=== PATIENT | male | born 1960 | race Caucasian/White ===

== ENCOUNTER 2020-01-11 10:26 | Observation (INO) | payer SELFPAY ==
[2020-01-11] VITALS (10 sets, daily range): BP systolic 143–175; BP diastolic 80–110; PULSE 68–87; RESP 12–26; TEMP 36.5–36.9; O2SAT 94–99; BMI 25.4
--- NOTE | 2020-01-11 11:58 | ECG_ITS ---
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 Measurements Intervals [place] Rate: 80 P: 54 RI: 185 QRS: 47 QRSD: 102 T: -46 QT: 363 QTc: 421 Interpretive Statements SINUS RHYTHM POSSIBLE LEFT ATRIAL ENLARGEMENT [-0.1mV P WAVE IN V1/V2] MODERATE T-WAVE ABNORMALITY, CONSIDER ANTEROLATERAL ISCHEMIA [-0.1+ mV T WAVE IN V3-V6] No previous ECG available for comparison Electronically Signed On 01-11-2020 22:03:28 CDT by Nanette Vega M.D. [id number]
--- NOTE | 2020-01-11 11:58 | ED_ITS ---
HPI - Abdominal Pain General: Chief Complaint: Chest Pain Stated Complaint: NAUSEA Time Seen by Provider: 01/11/20 11:51 Source: patient Mode of arrival: ambulatory Limitations: no limitations History of Present Illness: HPI narrative: symptoms started last night and has continued to this morning. States he threw up all night . Several diarrheal episodes. MD elicited complaint: abdominal pain Pertinent past history: none Onset (ago): hour(s) (18) Pain Consistency: constant Location: Epigastric Severity: severe Quality: stabbing Radiation: none Migration to: no migration Exacerbating factors: nothing Relieving factors: nothing Associated Symptoms: Reports diarrhea, dyspepsia, heartburn, hematochezia (mild, for one week), nausea and vomiting; Denies anorexia, belching, bloating, change in bowel habits, change in stool character, chills, coffee ground emesis, constipation, GI cramping, dysuria, excessive flatus, fever(s), hematuria, hematemesis, fecal incontinence, loose stools, melena, poor appetite, syncope and other Review of Systems General: Reports: 10 or more systems reviewed and unremarkable except in HPI and below Const: Denies: fever(s) or chills Eyes: Denies: change in vision or blurry vision ENMT: Denies: throat pain, enlarged tonsils, odynophagia, hoarseness, mouth pain or swelling of lips/tongue Card: Denies: syncope Resp: Denies: dyspnea, productive cough or non-productive cough GI: Reports: nausea, vomiting, heartburn, diarrhea and hematochezia (mild, for one week); Denies: hematemesis, coffee ground emesis, constipation, bloating, GI cramping, belching, excessive flatus, fecal incontinence, change in bowel habits, change in stool character, melena or other : Denies: dysuria or hematuria Musc: Denies: neck pain, back pain or extremity swelling Skin/Breast: Denies: rash, pruritus or erythema Neuro: Denies: headache(s), numbness in extremities or weakness in extremities Endo: Denies: polyuria, polydipsia or tired all the time PFSH ED PFSH: Social History (Reviewed 01/11/20 @ 12:02 by Steven Barrios [place], [facility] [place] Smoking and tobacco status: never smoked Alcohol intake: never History of recent travel: No Physical Exam Const: COMMON NORMALS: no acute distress, average body habitus, patient oriented x3, no limitations, healthy appearing, alert and well nourished HENMT: COMMON NORMALS: normocephalic, atraumatic and moist oral mucous membranes HEAD & SCALP: normocephalic and atraumatic Neck/C-Spine: COMMON NORMALS: full ROM, supple, no meningeal signs, no JVD and No carotid bruits Chest: COMMONS NORMALS: normal inspection of the chest and normal palpation of entire chest wall Resp: COMMON NORMALS: normal respiratory effort, No retractions, No use of accessory muscles, clear to auscultation bilaterally and percussion normal AUSCULTATION: clear to auscultation bilaterally PERCUSSION: percussion normal Cardio: COMMON NORMALS: no JVD, regular rate, regular rhythm, S1 normal heart sound present, S2 normal heart sound present, No gallops present (Cardio), No clicks present (Cardio), No murmurs present (Cardio), No rub (Cardio) and Peripheral pulses 2+ throughout RATE: regular rate RHYTHM: regular rhythm HEART SOUNDS: S1 normal heart sound present and S2 normal heart sound present PERIPHERAL PULSES: Peripheral pulses 2+ throughout GI: COMMON NORMALS: Normal to inspection, nondistended, normoactive bowel sounds present, Soft to palpation, non-tender, No hepatosplenomegaly present, no masses and no bruits PALPATION: Yes Soft to palpation and Yes No hepatosplenomegaly present Extremity: COMMON NORMALS: normal to inspection, full ROM, capillary refill normal, no calf tenderness and no pedal edema Neuro: COMMON NORMALS: patient oriented x3 SENSORIUM/ORIENTATION: Yes alert MENINGEAL SIGNS: Yes no meningeal signs Skin: COMMON NORMALS: no rashes or lesions noted, no wounds, turgor normal, no jaundice, no petechiae and no mottling GENERAL SKIN EXAM: no rashes or lesions noted and turgor normal Course Reevaluation(s): Reevaluation #1: Discussed his lab and imaging findings with him. He has a couple of significant things going on-he has acute sigmoid diverticulitis, has upper GI bleed, and also has a renal mass concerning for Malignancy. He will benefit from hospital admission for further evaluation and management. He voiced understanding and is in agreement with the plan. Time: 15:15 Consultations: Consultation #1: Dr. Melendez, he kindly accepted the patient to his service. Time: 15:29 Consultation #2: Dr. Mancia, surgeon. He will scope the patient in the morning, upper GI endoscopy. Patient should be admitted to the medical service. Time: 15:34 Vital Signs: Vital signs: Vital Signs Temperature 98.4 F 01/11/20 12:07 Pulse Rate 68 01/11/20 14:07 Respiratory Rate 12 01/11/20 15:00 Blood Pressure 172/88 01/11/20 14:07 Pulse Oximetry 95 01/11/20 14:07 MDM - Abdominal Pain MDM Narrative: Medical decision making narrative: 59-year-old male with upper GI bleeding, acute diverticulitis, and a renal mass that is concerning for malignancy. He was given antiemetics and analgesics as well as PPI in the emergency department. He is also given antibiotics and an NG tube was placed. He is admitted for further evaluation and management. Medical Records: Attestation: I reviewed the patient's medical records. Lab Data: Attestation: I reviewed the patient's lab results. Labs: Lab Results 01/11/20 01/11/20 01/11/20 Range/Units 12:20 12:20 12:20 WBC 20.8 H (4.0-10.0) 10^3/ uL RBC 5.47 H (4.1-5.3) 10^6/u L Hgb 16.0 (11.7-16.6) g/dL Hct 46.8 (42.0-52.0) % MCV 85.6 (80-94) fL MCH 29.3 (28.0-34.0) pg MCHC 34.2 (30.0-36.0) g/dL RDW 11.7 L (12.1-15.1) % Plt Count 702 H (130-400) 10^3/c mm MPV 8.9 (7.4-10.4) fL Neut % (Auto) 90.0 % Lymph % (Auto) 6.2 % [place] % (Auto) 2.7 % Eos % (Auto) 0.0 % Baso % (Auto) 0.3 % Neut # (Auto) 18.70 H (1.8-7.7) 10^3/u L Lymph # (Auto) 1.3 (0.8-4.8) 10^3/u L [place] # (Auto) 0.6 (0.2-0.9) 10^3/u L Eos # (Auto) 0.0 (0.0-0.8) 10^3/u L Baso # (Auto) 0.1 (0.0-0.1) 10^3/u L Nucleated RBC % (a uto) 0 % Nucleated RBCs # 0.0 /100WBC Sodium 137 (136-145) mmol/L Potassium 4.5 (3.5-5.1) mmol/L Chloride 91 L (98-107) mmol/L Carbon Dioxide 31 H (22-29) mmol/L Anion Gap 19.5 H (5-19) BUN 24 H (6-20) mg/dL Creatinine 1.3 H (0.7-1.2) mg/dL GFR Calculation 56.9 L (90-130) mL/min Glucose 173 H (65-115) mg/dL Calculated Osmolal ity 292 (285-295) mOsm/k g Lactate 2.8 H (0.5-2.2) mmol/L Calcium 11.0 H (8.5-10.5) mg/dL Total Bilirubin 0.6 (0.15-1.2) mg/dL AST 19 (0-40) U/L ALT 17 (0-41) U/L Alkaline Phosphata se 126 (40-130) IU/L Creatine Kinase 67 (39-308) U/L Troponin T Baselin e (0-15) ng/L Troponin T 120 Min [place] (0-15) ng/L Delta Troponin T (0-10) ABS# C-Reactive Protein 102.3 H (0.0-4.9) mg/L Total Protein 7.8 (6.6-8.7) g/dL Albumin 4.5 (3.5-5.2) g/dL Globulin 3.3 (1.3-4.6) g/dL Lipase 16 (13-60) U/L Gastric Occult Blo od (Negative) 01/11/20 01/11/20 01/11/20 Range/Units 12:20 14:58 15:10 WBC (4.0-10.0) 10^3/ uL RBC (4.1-5.3) 10^6/u L Hgb (11.7-16.6) g/dL Hct (42.0-52.0) % MCV (80-94) fL MCH (28.0-34.0) pg MCHC (30.0-36.0) g/dL RDW (12.1-15.1) % Plt Count (130-400) 10^3/c mm MPV (7.4-10.4) fL Neut % (Auto) % Lymph % (Auto) % [place] % (Auto) % Eos % (Auto) % Baso % (Auto) % Neut # (Auto) (1.8-7.7) 10^3/u L Lymph # (Auto) (0.8-4.8) 10^3/u L [place] # (Auto) (0.2-0.9) 10^3/u L Eos # (Auto) (0.0-0.8) 10^3/u L Baso # (Auto) (0.0-0.1) 10^3/u L Nucleated RBC % (a uto) % Nucleated RBCs # /100WBC Sodium (136-145) mmol/L Potassium (3.5-5.1) mmol/L Chloride (98-107) mmol/L Carbon Dioxide (22-29) mmol/L Anion Gap (5-19) BUN (6-20) mg/dL Creatinine (0.7-1.2) mg/dL GFR Calculation (90-130) mL/min Glucose (65-115) mg/dL Calculated Osmolal ity (285-295) mOsm/k g Lactate (0.5-2.2) mmol/L Calcium (8.5-10.5) mg/dL Total Bilirubin (0.15-1.2) mg/dL AST (0-40) U/L ALT (0-41) U/L Alkaline Phosphata se (40-130) IU/L Creatine Kinase (39-308) U/L Troponin T Baselin e 7 (0-15) ng/L Troponin T 120 Min [place] 6.00 (0-15) ng/L Delta Troponin T -1.00 L (0-10) ABS# C-Reactive Protein (0.0-4.9) mg/L Total Protein (6.6-8.7) g/dL Albumin (3.5-5.2) g/dL Globulin (1.3-4.6) g/dL Lipase (13-60) U/L Gastric Occult Blo od Positive H (Negative) Imaging Data ^: CXR: Attestation: I personally reviewed and interpreted this imaging study as follows: Radiologist's impression: [address] [address] XRay Report Signed Patient: Alfredo Eller #: [id number] : 1960Acct#:[id number] Age/Sex: 59 / MADM Date: 01/11/20 Loc: ERRoom/Bed: Attending Dr: Ordering Provider/Ordering MD: Steven Barrios MD[place] [facility] [place] of Service: 01/11/20 Procedure(s): XR chest 1V portable [id number] Accession Number(s): [id number] Report Number: [id number] PROCEDURE INFORMATION: Exam: XR Chest, 1 View Exam date and time: 01/11/2020 11:59 AM Age: 59 years old Clinical indication: Chest pain TECHNIQUE: Imaging protocol: XR of the chest Views: 1 view. COMPARISON: No relevant prior studies available. FINDINGS: Lungs: Unremarkable. No consolidation. Pleural space: Unremarkable. No pleural effusion. No pneumothorax. Heart/Mediastinum: Unremarkable. No cardiomegaly. Bones/joints: Unremarkable. XR/XR chest 1V portable [id number] IMPRESSION: No acute findings. Dictated By:Ezra Campos Signed By:Raymond Campos Date/Time:01/11/20 1310 DD/ 1309 EKG Data ^: EKG 1: Attestation: I personally reviewed and interpreted this EKG as follows: EKG interpretation date: 01/11/20 EKG interpretation time: 12:26 Prior EKG tracings: not available for review Interpretation: Normal sinus rhythm. Heart rate [address] changes. EKG 2: Attestation: I personally reviewed and interpreted this EKG as follows: EKG interpretation date: 01/11/20 EKG interpretation time: 13:17 Prior EKG tracings: available for review Interpretation: Normal sinus rhythm. Heart rate [address] changes. EKG 3: Attestation: I personally reviewed and interpreted this EKG as follows: EKG interpretation date: 01/11/20 EKG interpretation time: 14:51 Prior EKG tracings: available for review Interpretation: Normal sinus rhythm. Heart rate [address] changes. Unchanged from earlier Discharge Plan Discharge Patient Disposition: Admitted As Inpatient Admit Provider: Gabe Melendez Clinical Impression: Acute upper gastrointestinal bleeding, Diverticulitis of sigmoid colon, Renal mass, right, Sepsis Condition: Stable Coding Level of Care Code ED Scientific Systems Analyst for Chg Fwd Exam Comprehensive
[2020-01-11] MEDS: ondansetron 2 mg/ML SDV 2 mL 4 MG IVP (12:43)
[2020-01-11] MEDS: sodium chloride 0.9% 1,000 ML 999 ML IV ×2 (12:43→14:44)
[2020-01-11] MEDS: pantoprazole 40 mg SDV IVP (12:43)
[2020-01-11] MEDS: lidocaine 2% viscous 15 ML, aluminum-mag hydrox-simethicon 30 ML, sucralfate oral liq 1 GM PO (12:43)
[2020-01-11 12:46] LABS: Basophils # 0.1 10^3/uL (0.0-0.1); Basophils % 0.3 %; Hematocrit 46.8 % (42.0-52.0); Lymphocytes # 1.3 10^3/uL (0.8-4.8); Lymphocytes % 6.2 %; Mean Corpuscular HGB Conc 34.2 g/dL (30.0-36.0); Mean Corpuscular Hemoglobin 29.3 pg (28.0-34.0); Mean Corpuscular Volume 85.6 fL (80-94); Mean Platelet Volume 8.9 fL (7.4-10.4); Monocytes # 0.6 10^3/uL (0.2-0.9); Monocytes % 2.7 %; Nucleated Red Blood Cells % 0 %; Platelet Count 702 10^3/cmm (130-400); Red Blood Count 5.47 10^6/uL (4.1-5.3); Red Cell Distribution Width 11.7 % (12.1-15.1); White Blood Count 20.8 10^3/uL (4.0-10.0)
[2020-01-11 13:04] LABS: Lactate (Lactic Acid level) 2.8 mmol/L (0.5-2.2)
[2020-01-11 13:05] LABS: Alanine Aminotransferase 17 U/L (0-41); Albumin Level 4.5 g/dL (3.5-5.2); Alkaline Phosphatase 126 IU/L (40-130); Anion Gap 19.5 (5-19); Aspartate Amino Transferase 19 U/L (0-40); Blood Urea Nitrogen 24 mg/dL (6-20); C Reactive Protein 102.3 mg/L (0.0-4.9); Carbon Dioxide 31 mmol/L (22-29); Chloride 91 mmol/L (98-107); Creatine Phosphokinase 67 U/L (39-308); Globulin 3.3 g/dL (1.3-4.6); Glomerular Filtration Rate 56.9 mL/min (90-130); Glucose 173 mg/dL (65-115); Lipase 16 U/L (13-60); Osmolality Calculated 292 mOsm/kg (285-295); Potassium 4.5 mmol/L (3.5-5.1); Sodium 137 mmol/L (136-145); Total Bilirubin 0.6 mg/dL (0.15-1.2); Total Protein 7.8 g/dL (6.6-8.7)
[2020-01-11 13:08] LABS: Troponin(5th) Baseline 7 ng/L (0-15)
--- NOTE | 2020-01-11 13:39 | CTR_ITS ---
PROCEDURE INFORMATION: Exam: CT Abdomen And Pelvis Without Contrast Exam date and time: 01/11/2020 1:49 PM Age: 59 years old Clinical indication: Abdominal pain; Prior surgery; Surgery date: 6+ months; Surgery type: Hernia; Patient HX: C/O epigastric pain w n/v/d TECHNIQUE: Imaging protocol: Computed tomography of the abdomen and pelvis without contrast. Radiation optimization: All CT scans at this facility use at least one of these dose optimization techniques: automated exposure control; mA and/or kV adjustment per patient size (includes targeted exams where dose is matched to clinical indication); or iterative reconstruction. COMPARISON: No relevant prior studies available. RADIATION DOSE METRICS: Total DLP (mGy-cm): 1063.2 FINDINGS: Mediastinal space: Fluid in distal esophagus suggesting GE reflux. Liver: Probable small 6 mm low-density hepatic cyst anterior to gallbladder. Gallbladder and bile ducts: Normal. No calcified stones. No ductal dilation. Pancreas: Normal. No ductal dilation. Spleen: Normal. No splenomegaly. Adrenals: Normal. No mass. Kidneys and ureters: 5.4 cm rounded hypodense heterogeneous mass lateral aspect of right kidney. Possible renal neoplasm and renal ultrasound or CT urogram could further evaluate as clinically indicated. Small 7 mm rounded hypodense structure lateral aspect left kidney which is too small to characterize but may be a small cyst. Small 1-2 mm nonobstructing stone lower pole of right kidney. Stomach and bowel: Sigmoid colon contains several small diverticula. Associated generalized distal sigmoid colon wall thickening with surrounding fat haziness/inflammation suggesting acute sigmoid diverticulitis. Abundant fluid in the stomach and duodenum, nonspecific. Appendix: No evidence of appendicitis. Intraperitoneal space: Unremarkable. No free air. No significant fluid collection. Vasculature: Unremarkable. No abdominal aortic aneurysm. Lymph nodes: Unremarkable. No enlarged lymph nodes. Urinary bladder: Mild generalized urinary bladder wall thickening, appears chronic. Reproductive: Mild prostate enlargement with small central calcifications. Bones/joints: Chronic bilateral L5 spondylolysis with 10 mm of anterior spondylolisthesis. Lower thoracic and lumbar spine degenerative disc disease, chronic. Soft tissues: Unremarkable. CT/CT abdomen pelvis wo con [id number] IMPRESSION: 1.) Acute distal sigmoid diverticulitis versus localized distal colitis. 2.)5.4 cm rounded hypodense heterogeneous mass lateral aspect of right kidney. Possible renal neoplasm and renal ultrasound or CT urogram could further evaluate as clinically indicated. Small 7 mm rounded hypodense structure lateral aspect left kidney which is too small to characterize but may be a small cyst. Small 1-2 mm nonobstructing stone lower pole of right kidney. 3.) Abundant fluid in stomach and duodenum, nonspecific. Radiation Dose CTDIVOL = (mGy): DLP = 1063.2 (mGy-cm)
--- NOTE | 2020-01-11 13:58 | ECG_ITS ---
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 Measurements Intervals [place] Rate: 83 P: 53 TN: 188 QRS: 29 QRSD: 105 T: 45 QT: 371 QTc: 438 Interpretive Statements SINUS RHYTHM POSSIBLE LEFT ATRIAL ENLARGEMENT [-0.1mV P WAVE IN V1/V2] NONSPECIFIC ST & T-WAVE ABNORMALITY Compared to ECG 01/11/2020 13:17:49 Possible ischemia no longer present T-wave abnormality still present Electronically Signed On 01-11-2020 22:13:23 CDT by Nanette Vega M.D. [id number]
[2020-01-11] MEDS: famotidine 20 mg/2 mL INJ 40 MG IVP (14:44)
[2020-01-11] MEDS: morphine 4 mg/mL SDV 1 mL IVP (14:44)
--- NOTE | 2020-01-11 15:03 | USR_ITS ---
PROCEDURE INFORMATION: Exam: US Retroperitoneal; Complete; Kidneys and Bladder Exam date and time: 01/11/2020 3:04 PM Age: 59 years old Clinical indication: Abdominal pain; Acute; Additional info: Right kidney mass TECHNIQUE: Imaging protocol: Real-time ultrasound of the retroperitoneum with image documentation. Complete exam focused on the kidneys and bladder. COMPARISON: CT abdomen pelvis wo con [id number] 01/11/2020 1:55 PM FINDINGS: Right kidney: Right kidney measures approximately 11.2 x 6 x 4.6 cm. Ultrasound confirms a 5.7 x 5 x 5 cm complex mass in lateral aspect of right kidney. Mass is partially cystic with extensive internal thick irregular septations. No hydronephrosis. Left kidney: Sonographically normal appearing left kidney measuring 11.3 x 5.8 x 5.8 cm. No obvious shadowing stones. No hydronephrosis. Bladder: Unremarkable. US/US renal BI* [id number] IMPRESSION: Complex approximately 5.7 x 5 x 5 cm right renal mass laterally. Mass is partially cystic with extensive irregular internal septations. Diagnostic possibilities include a cystic nephroma (multilocular renal cyst), multilocular cystic renal cell carcinoma/clear cell renal cell carcinoma, or less likely some type of nonneoplastic/acquired cystic disease, primary renal synovial sarcoma, or mixed epithelial and stromal tumor.
[2020-01-11 15:21] LABS: Gastricult Occult Blood Positive (Negative)
[2020-01-11] MEDS: ciprofloxacin 400 MG/200 ML PREMIX 200 MG IV (15:28)
[2020-01-11] MEDS: metroNIDAZOLE IV 500 MG/100 ML PREMIX 100 MG IV (15:28)
--- NOTE | 2020-01-11 15:51 | XRR_ITS ---
PROCEDURE INFORMATION: Exam: XR Chest, 1 View Exam date and time: 01/11/2020 3:54 PM Age: 59 years old Clinical indication: Device placement; Ng tube; Additional info: Ng tube placement TECHNIQUE: Imaging protocol: XR of the chest Views: 1 view. COMPARISON: CR (CHEST, ) 01/11/2020 12:32 PM FINDINGS: Tubes, catheters and devices: NG tube descends into proximal stomach. Lungs: Unremarkable. No consolidation. Pleural space: Unremarkable. No pleural effusion. No pneumothorax. Heart/Mediastinum: Unremarkable. No cardiomegaly. Bones/joints: Unremarkable. XR/XR chest 1V portable [id number] IMPRESSION: NG tube tip in proximal stomach.
[2020-01-11 15:58] LABS: Urine Appearance Clear (CLEAR); Urine Color Yellow (Yellow); pH Urine 6 (5-7)
[2020-01-11 15:59] LABS: Add Urine Microscopic? YES; Bilirubin Urine 1+ (Negative); Blood Urine Neg (Negative); Glucose Urine UA Norm (Normal); Ketones Urine 2+ (Negative); Leukocyte Esterase Urine Negative (Negative); Nitrate Urine Negative (Negative); Protein Urine 1+ (Negative); Urobilinogen Urine 1 mg/dL (Negative)
--- NOTE | 2020-01-11 16:02 | PM.CONSULT ---
Providers/Reason For Consult Consulting Physican/Specialty*: Byron Mancia MD Reason for Consult*: GI bleed Attending Physician: Gabe Melendez MD History of Present Illness History of Present Illness Chief Complaint: I am hurting History of present illness: Mr Alfredo Eller is a 59 year old male presented to the emergency department with repeated nausea and vomiting associated with retrosternal chest pain being sharp and also does have pain on the left lower side of the abdomen is not being referred, nothing seems to make it better or worse at this point, patient has been reporting vomiting since yesterday nonbloody, yet he does report some blood in stool for the past couple of weeks. Last colonoscopy was done about 4 years ago and he was told that he has diverticulosis otherwise was normal and he denies personal or family history of colon cancer. Further work-up showed a hemoglobin of 16 g/dL, creatinine of 1.3 and lactic acid of 2.8 likely due to dehydration Liver: Probable small 6 mm low-density hepatic cyst anterior to gallbladder. Gallbladder and bile ducts: Normal. No calcified stones. No ductal dilation. Pancreas: Normal. No ductal dilation. Spleen: Normal. No splenomegaly. Adrenals: Normal. No mass. Kidneys and ureters: 5.4 cm rounded hypodense heterogeneous mass lateral aspect of right kidney. Possible renal neoplasm and renal ultrasound or CT urogram could further evaluate as clinically indicated. Small 7 mm rounded hypodense structure lateral aspect left kidney which is too small to characterize but may be a small cyst. Small 1-2 mm nonobstructing stone lower pole of right kidney. Stomach and bowel: Sigmoid colon contains several small diverticula. Associated generalized distal sigmoid colon wall thickening with surrounding fat haziness/inflammation suggesting acute sigmoid diverticulitis. Abundant fluid in the stomach and duodenum, nonspecific. Appendix: No evidence of appendicitis. Intraperitoneal space: Unremarkable. No free air. No significant fluid collection. Vasculature: Unremarkable. No abdominal aortic aneurysm. Lymph nodes: Unremarkable. No enlarged lymph nodes. Urinary bladder: Mild generalized urinary bladder wall thickening, appears chronic. Reproductive: Mild prostate enlargement with small central calcifications. Bones/joints: Chronic bilateral L5 spondylolysis with 10 mm of anterior spondylolisthesis. Lower thoracic and lumbar spine degenerative disc disease, chronic. Soft tissues: Unremarkable. CT/CT abdomen pelvis wo con [id number] IMPRESSION: 1.) Acute distal sigmoid diverticulitis versus localized distal colitis. 2.)5.4 cm rounded hypodense heterogeneous mass lateral aspect of right kidney. Possible renal neoplasm and renal ultrasound or CT urogram could further evaluate as clinically indicated. Small 7 mm rounded hypodense structure lateral aspect left kidney which is too small to characterize but may be a small cyst. Small 1-2 mm nonobstructing stone lower pole of right kidney. 3.) Abundant fluid in stomach and duodenum, nonspecific. General surgery was consulted for further evaluation potential endoscopy at some point, patient reports to me that he has previous history of gastric ulcers. Patient was seen and evaluated in the emergency department room #6 Review of Systems General: Reports: 10 or more systems reviewed and unremarkable except in HPI and below Meds/Allergies Home Medications and Allergies Home Medications Medication Instructions Recorded Confirmed Last Taken Type aspirin 81 mg PO PRN 01/11/20 01/11/20 01/11/20 History calcium carbonate 200 mg calcium 200 mg PO PRN 01/11/20 01/11/20 Unknown History (500 mg) chewable tablet ibuprofen 800 mg PO PRN 01/11/20 01/11/20 01/10/20 History lisinopril 20 mg PO DAILY 01/11/20 01/11/20 01/10/20 History Allergies Allergy/AdvReac Type Severity Reaction Status Date / Time lisinopril Allergy Severe angioedema Verified 01/11/20 16:39 Current Medications Current Medications Generic Name Dose Route Start Last Admin Trade Name Freq PRN Reason Stop Dose Admin Ciprofloxacin/Dextrose 400 mg in 200 mls @ 200 mls/hr 01/11/20 15:12 01/11/20 15:28 Cipro IV 01/11/20 16:11 200 mls/hr ONCE ONE Administration Protocol Metronidazole 500 mg in 100 mls @ 100 mls/hr 01/11/20 15:12 01/11/20 15:28 Flagyl Iv IV 01/11/20 16:11 100 mls/hr ONCE ONE Administration PFSH Acute PFSH: Medical History GERD (gastroesophageal reflux disease) HTN, goal below 140/80 Surgical History History of hernia surgery Family History Mother Atrial fibrillation Father Cancer Social History Smoking and tobacco status: never smoked Alcohol intake: current Alcohol intake frequency: 3 or more drinks per day Alcohol type: beer Alcohol use comment: Last drink was 3 weeks ago History of recent travel: No Vitals/I&O/Wt Last Vital Signs Temp 98.4 F 01/11/20 12:07 Pulse 68 01/11/20 14:07 Resp 12 01/11/20 15:00 BP 172/88 01/11/20 14:07 Pulse Ox 95 01/11/20 14:07 01/11/20 01/11/20 01/11/20 06:59 14:59 22:59 Intake Total 1000 / 1000 Balance 1000 / 1000 Weight last 48 hrs Weight 209 lb Weight 209 lb Physical Exam Narrative: EXAM NARRATIVE: Patient is conscious alert oriented X3 BMI 25.4 Head and neck examination PERRLA no masses no cervical lymphadenopathy no jaundice NG in place with dark bilious content Cardiac examination audible S1-S2 no murmurs no gallops no arrhythmias Chest is clear bilateral,abscence of Rhonchi or wheezes,no surgical emphysema Abdomen nontender except mild tenderness appreciated at the left lower quadrant nondistended soft no organomegaly guarding or rigidity/no signs of peritonitis During physical examination patient pointed out that he does have a bruise on the right hemiscrotum and he does not know when explanation for Upon examination right hemiscrotum shows mild tenderness of the right testicle with bruise of the skin without evidence of abscess formation or cellulitis Extremities no cyanosis no clubbing no edema A&P Assessment and plan (1) Diverticulitis of sigmoid colon: After thorough history physical examination and reviewing the chart and images of the CT scan with my personal interpretation likely the patient because of his acute episode of diverticulitis of the sigmoid colon that initiated his nausea and vomiting. I did not appreciate any bloody aspirate in the NG content or hematemesis. IV antimicrobial therapy in the form of ciprofloxacin and Flagyl versus Zosyn N.p.o. with NG to low intermittent wall suction Repeated physical examination IV fluid resuscitation Likely the patient would benefit from a colonoscopy 6 to 8 weeks out from such an episode to rule out potential underlying neoplastic lesion Thank you for consulting general surgery to participate taking care Mr. Eller Status: Acute (2) Nausea and vomiting: With regard to the nausea and vomiting, patient will benefit from IV fluid resuscitation NG to low intermittent wall suction EGD can be a potential option if patient continues to have persistent nausea and vomiting this hospitalization otherwise can be done as an outpatient with a colonoscopy in 6 to 8 weeks. PPI therapy Close monitoring Antinausea medications including Zofran/scopolamine patches Follow on morning labs include lactic acid Repeated physical examination Assurance and education All questions have been answered and all concerns have been addressed to patient's satisfaction. Status: Acute (3) Renal mass, right: Recommend urology consultation as an outpatient for further directions Status: Acute Consult Attestations Medical Necessity Statement: Patient will require hospitalization for IV antimicrobial therapy and IV fluid resuscitation. Time Spent in Patient Care: (>than 50% of time spent in counselling and/or direct pt care on unit). Coding Level of Care Code Acute Backroom Associate for [facility] Fwd Diagnoses Diverticulitis of sigmoid colon K57.32 Nausea and vomiting R11.2 Renal mass, right N28.89
[2020-01-11 16:04] LABS: Add Urine Culture? No; Bacteria Urine 1+ /hpf; Mucus Urine 2+ /hpf
--- NOTE | 2020-01-11 16:18 | PM.HP ---
Providers/Chief Complaint Admitting Physician: Gabe Melendez MD Chief Complaint: NAUSEA History of Present Illness Alfredo Eller is a 59 year old male with a past medical history of hypertension not taking any medications, history of GERD for the past year, who presents [facility] due to worsening epigastric pain for the last 24 hours, with nausea, vomiting, hematemesis. Patient denies a history of peptic ulcer disease, no history of gastric malignancy, no family history of gastric malignancy. For the past year patient has been dealing with epigastric discomfort, nausea, vomiting, has used [id number] Prilosec without improvement. In the last 24 hours, patient has had severe worsening of the epigastric pain, nausea, vomiting, he tells me that he has vomited up a garbage can full of fluid, with hematemesis. In addition he has bloody stools. No fevers. No chills. No known sick contacts. No recent travel. Patient tells me that he uses up to 800 mg of ibuprofen for chronic back pain and joint pain. He had a colonoscopy a few years ago which showed no significant findings. Patient states that he feels nauseous currently, but is a bit improved, no hematemesis since he has been in the ER, no repeat bloody or black stools. Patient states that yesterday his blood pressure was high, so you took lisinopril, he has not taken his blood pressure medication for some period of time, so his lip started to swell, no tongue swelling, no throat swelling, no fever facial swelling. Review of Systems Const: Denies: fever(s), chills, fatigue or malaise Eyes: Denies: change in vision or blurry vision ENMT: Denies: nasal congestion Resp: Denies: dyspnea, productive cough, non-productive cough or wheezing GI: Reports: abdominal pain, nausea, vomiting, hematemesis and hematochezia; Denies: diarrhea, constipation or melena : Denies: flank pain, difficulty urinating, dysuria or urinary frequency Musc: Denies: neck pain or back pain Skin/Breast: Denies: rash Neuro: Denies: headache(s), dizziness or vertigo Psych: Denies: anxiety or depression Endo: Denies: polyuria or polydipsia Medications/Allergies Home Medications Medication Instructions Recorded Confirmed Last Taken Type aspirin 81 mg PO PRN 01/11/20 01/11/20 01/11/20 History calcium carbonate 200 mg calcium 200 mg PO PRN 01/11/20 01/11/20 Unknown History (500 mg) chewable tablet ibuprofen 800 mg PO PRN 01/11/20 01/11/20 01/10/20 History lisinopril 20 mg PO DAILY 01/11/20 01/11/20 01/10/20 History Allergies Allergy/AdvReac Type Severity Reaction Status Date / Time lisinopril Allergy Severe angioedema Verified 01/11/20 16:39 PFSH Acute PFSH: Medical History (Updated 01/11/20 @ 16:28 by Gabe Melendez MD) GERD (gastroesophageal reflux disease) HTN, goal below 140/80 Surgical History (Updated 01/11/20 @ 16:22 by Gabe Melendez MD) History of hernia surgery Family History (Updated 01/11/20 @ 16:28 by Gabe Melendez MD) Mother Atrial fibrillation Father Cancer Social History (Updated 01/11/20 @ 16:29 by Gabe Melendez MD) Smoking and tobacco status: never smoked Alcohol intake: current Alcohol intake frequency: 3 or more drinks per day Alcohol type: beer Alcohol use comment: Last drink was 3 weeks ago History of recent travel: No Vitals/I&O/Wt Last Vital Signs Temp 98.4 F 01/11/20 12:07 Pulse 78 01/11/20 16:00 Resp 20 H 01/11/20 16:00 BP 175/110 01/11/20 16:00 Pulse Ox 98 01/11/20 16:00 01/11/20 01/11/20 01/11/20 06:59 14:59 22:59 Intake Total 1000 / 1000 1000 / 2000 Balance 1000 / 1000 1000 / 2000 Weight last 48 hrs Weight 94.801 kg Weight 94.801 kg Physical Exam Const: COMMON NORMALS: no acute distress and patient oriented x3 HENMT: COMMON NORMALS: normocephalic HEAD & SCALP: normocephalic Neck/C-Spine: COMMON NORMALS: no JVD Resp: COMMON NORMALS: normal respiratory effort, No retractions, No use of accessory muscles and clear to auscultation bilaterally AUSCULTATION: clear to auscultation bilaterally Cardio: COMMON NORMALS: no JVD, regular rate, regular rhythm, S1 normal heart sound present and S2 normal heart sound present RATE: regular rate RHYTHM: regular rhythm HEART SOUNDS: S1 normal heart sound present and S2 normal heart sound present GI: COMMON NORMALS: Normal to inspection, nondistended, normoactive bowel sounds present, Soft to palpation, non-tender, No hepatosplenomegaly present, no masses and no bruits PALPATION: Yes Soft to palpation and Yes Tenderness to palpation present (GI) (Severe tenderness to the epigastrium) Extremity: COMMON NORMALS: capillary refill normal, no clubbing, cyanosis or edema, no calf tenderness and no pedal edema Neuro: COMMON NORMALS: patient oriented x3 Psych: COMMON NORMALS: mental status grossly normal Data : 01/11/20 12:20 01/11/20 12:20 A&P Assessment and plan (1) Acute upper gastrointestinal bleeding: -Has a 1 year history of epigastric discomfort -Has a history of regular ibuprofen use -Has risk factors for H. pylori -Hemoccult positive, white blood cell count 20.8, hemoglobin 16, platelet count 702, BUN 31 -Had complaints of hematemesis -Reports alcohol consumption, denies a history of esophageal varices, or liver disease Plan: -N.p.o. -NG tube -General surgery has been consulted -Plan for EGD tomorrow morning -Protonix, Carafate -Monitor hemodynamics closely, monitor hemoglobin -H. pylori stool antigen -We will consider discharging on H. pylori treatment Status: Acute (2) Diverticulitis of sigmoid colon: -Seen on CT scan -However his pain seems to be more in the epigastrium -Continue ciprofloxacin and Flagyl -De-escalate antibiotic therapy based on clinical progress Status: Acute (3) Renal mass, right: -5.4 cm rounded hypodense heterogeneous mass lateral aspect of right kidney. Possible renal neoplasm and renal ultrasound or CT urogram could further evaluate as clinically indicated. Small 7 mm rounded hypodense structure lateral aspect left kidney which is too small to characterize but may be a small cyst. Small 1-2 mm nonobstructing stone lower pole of right kidney. -shelby us Complex approximately 5.7 x 5 x 5 cm right renal mass laterally. Mass is partially cystic with extensive irregular internal septations. Diagnostic possibilities include a cystic nephroma (multilocular renal cyst), multilocular cystic renal cell carcinoma/clear cell renal cell carcinoma, or less likely some type of nonneoplastic/acquired cystic disease, primary renal synovial sarcoma, or mixed epithelial and stromal tumor. -Has hemoglobin of 16 -Will have patient follow with Dr. Santana as outpatient, likely will be referred to urology [place] for nephrectomy Status: Acute (4) GERD (gastroesophageal reflux disease): Status: Acute (5) Acute kidney injury: -Creatinine 1.3, continue IV hydration Status: Acute (6) Angioedema of lips: -Secondary to lisinopril presumably, but could have hereditary angioedema related to NSAID use -Stop lisinopril -Was given Pepcid in ER, with improvement of angioedema -Has lip swelling, some mild facial swelling much improved -No complaints of difficulty swallowing, difficulty breathing, no tongue swelling plan;: -Monitor for anaphylaxis -Monitor hemodynamics -Solu-Medrol -Benadryl -Cetirizine -Singulair -Would also avoid all NSAIDs Status: Acute (7) HTN, goal below 140/80: -Hypertensive in the ER -Labetalol as needed -Start p.o. Norvasc Status: Acute Attestations Medical Necessity Statement*: Patient requires hospitalization, outpatient with observation, for renal mass, upper GI bleed, NORI, hypertension Coding Level of Care Code Acute Share[employer] Developer for [employer] Fwd Exam Comprehensive Diagnoses Acute upper gastrointestinal bleeding K92.2 Diverticulitis of sigmoid colon K57.32 Renal mass, right N28.89 GERD (gastroesophageal reflux disease) K21.9 Acute kidney injury N17.9 Angioedema of lips T78.3XXA HTN, goal below 140/80 I10
--- NOTE | 2020-01-11 17:58 | ECG_ITS ---
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
[2020-01-11] MEDS: dextrose 5%-sod chloride 0.9% 1,000 ML 75 ML IV (18:00)
[2020-01-11] MEDS: sucralfate 1 gm Tablet PO (18:06)
[2020-01-11] MEDS: amlodipine 10 mg Tablet PO (18:06)
[2020-01-11] MEDS: cetirizine 10 mg Tablet PO (18:06)
[2020-01-11] MEDS: morphine 4 mg/mL SDV 1 mL 2 MG IVP (18:29)
[2020-01-11 19:23] LABS: Troponin 5 6HR 7.98 ng/L (0-15); Troponin 5 6HR Delta 0.98 ng/L (0-12)
[2020-01-11 23:01] LABS: Estmated Average Glucose 108; Hemoglobin A1C 5.4 % (4.0-6.0)
[2020-01-12] VITALS (7 sets, daily range): BP systolic 135–157; BP diastolic 64–87; PULSE 69–109; RESP 14–96; TEMP 35.8–37.2; O2SAT 92–97
[2020-01-12] MEDS: pantoprazole 40 mg SDV IVP ×2 (00:08→12:04)
[2020-01-12] MEDS: metroNIDAZOLE IV 500 MG/100 ML PREMIX 100 MG IV ×3 (03:02→18:13)
[2020-01-12 03:36] LABS: Basophils % 0.2 %; Hematocrit 44.9 % (42.0-52.0); Hemoglobin 14.8 g/dL (11.7-16.6); Lymphocytes # 0.7 10^3/uL (0.8-4.8); Lymphocytes % 5.5 %; Mean Corpuscular Hemoglobin 28.8 pg (28.0-34.0); Mean Corpuscular Volume 87.4 fL (80-94); Mean Platelet Volume 8.7 fL (7.4-10.4); Monocytes # 0.1 10^3/uL (0.2-0.9); Monocytes % 0.9 %; Neutrophils # 11.75 10^3/uL (1.8-7.7); Neutrophils % 92.8 %; Nucleated Red Blood Cells % 0 %; Platelet Count 538 10^3/cmm (130-400); Red Blood Count 5.14 10^6/uL (4.1-5.3); Red Cell Distribution Width 11.8 % (12.1-15.1); White Blood Count 12.7 10^3/uL (4.0-10.0)
[2020-01-12 03:54] LABS: Lactate (Lactic Acid level) 0.9 mmol/L (0.5-2.2)
[2020-01-12 03:57] LABS: Anion Gap 13.1 (5-19); Blood Urea Nitrogen 20 mg/dL (6-20); Calcium 9.2 mg/dL (8.5-10.5); Carbon Dioxide 28 mmol/L (22-29); Chloride 102 mmol/L (98-107); Glucose 192 mg/dL (65-115); Osmolality Calculated 296 mOsm/kg (285-295); Potassium 4.1 mmol/L (3.5-5.1); Sodium 139 mmol/L (136-145)
[2020-01-12] MEDS: ciprofloxacin 400 MG/200 ML PREMIX 200 MG IV ×2 (04:38→15:27)
--- NOTE | 2020-01-12 06:34 | P.PN_ITS ---
Subjective Subjective: Interval history: Patient overall feels better and not much per NG output and continues to be dark bilious content, trending down of leukocytosis to 12,000+, lactic acid 0.9 patient is responding well to resuscitation with IV fluids. Overall patient denies abdominal pain or nausea. Vitals/I&O/Wt Last Vital Signs Temp 98.4 F 01/12/20 04:00 Pulse 73 01/12/20 04:00 Resp 16 01/12/20 04:00 BP 139/84 01/12/20 04:00 Pulse Ox 97 01/12/20 04:00 01/11/20 01/11/20 01/12/20 14:59 22:59 06:59 Intake Total 1000 / 1000 1300 / 2300 Output Total 600 / 600 Balance 1000 / 1000 1300 / 2300 -600 / 1700 Weight last 48 hrs Weight 209 lb Weight 209 lb Physical Exam Narrative: EXAM NARRATIVE: Patient is conscious alert oriented X3 BMI 25.4 Head and neck examination PERRLA no masses no cervical lymphadenopathy no jaundice NG in place with bilious output Abdomen nontender nondistended soft no organomegaly guarding or rigidity/no signs of peritonitis Stable right hemiscrotum ecchymosis Data : 01/12/20 03:27 01/12/20 03:27 A&P Assessment and plan (1) Diverticulitis of sigmoid colon: Continue IV antimicrobial therapy in the form of ciprofloxacin and Flagyl versus Zosyn Repeated physical examination IV fluid resuscitation We will plan for colonoscopy 6 to 8 weeks out from such an episode Thank you for consulting general surgery to participate taking care Mr. Eller Status: Acute (2) Nausea and vomiting: Continue IV fluid resuscitation We will plan to clamp NG tube for 2 hours and check residuals if less than 200 mL can DC, unless the patient encounters nausea or vomiting we will hook back the NG to low intermittent wall suction. Pending COVID-19 results. EGD can be a potential option if patient continues to have persistent nausea and vomiting this hospitalization otherwise can be done as an outpatient with a colonoscopy in 6 to 8 weeks. PPI therapy Close monitoring Antinausea medications including Zofran/scopolamine patches Follow on morning labs include lactic acid Repeated physical examination Assurance and education All questions have been answered and all concerns have been addressed to patient's satisfaction. Status: Acute Attestations Medical Necessity Statement*: Patient requiring hospitalization for IV antimicrobial therapy and repeated physical examination. Time Spent in Patient Care: (>than 50% of time spent in counselling and/or direct pt care on unit) . Coding Level of Care Code Acute [employer] Director for [employer] Diagnoses Diverticulitis of sigmoid colon K57.32 Nausea and vomiting R11.2
[2020-01-12] MEDS: sucralfate 1 gm Tablet PO ×2 (06:43→18:13)
[2020-01-12] MEDS: morphine 4 mg/mL SDV 1 mL 2 MG IVP (06:45)
[2020-01-12] MEDS: amlodipine 10 mg Tablet PO (07:59)
[2020-01-12] MEDS: predniSONE 20 mg Tablet 40 MG PO (07:59)
[2020-01-12] MEDS: cetirizine 10 mg Tablet PO ×2 (07:59→18:13)
[2020-01-12] MEDS: dextrose 5%-sod chloride 0.9% 1,000 ML 75 ML IV (08:00)
--- NOTE | 2020-01-12 08:59 | PC.NURSE ---
received order to D/C NG tube. pt tolerated removal well and states that he is not nauseous. okay'd by Dr. Mancia for pt to have ice chips and pt is tolerating that well.
--- NOTE | 2020-01-12 12:01 | P.PN_ITS ---
Subjective Subjective: Interval history: This morning patient is feeling well, NG tube was removed, abdominal pain is minimal, no fevers, no chills, no nausea, no vomiting Vitals/I&O/Wt Last Vital Signs Temp 96.5 F L 01/12/20 11:22 Pulse 69 01/12/20 11:22 Resp 14 01/12/20 11:22 BP 151/81 01/12/20 11:22 Pulse Ox 94 01/12/20 11:22 01/11/20 01/12/20 01/12/20 22:59 06:59 14:59 Intake Total 1300 / 2300 1300 / 1300 Output Total 700 / 700 450 / 450 Balance 1300 / 2300 -700 / 1600 850 / 850 Weight last 48 hrs Weight 94.801 kg Weight 94.801 kg Physical Exam Const: COMMON NORMALS: no acute distress and patient oriented x3 HENMT: COMMON NORMALS: normocephalic HEAD & SCALP: normocephalic Neck/C-Spine: COMMON NORMALS: no JVD Resp: COMMON NORMALS: normal respiratory effort, No retractions, No use of accessory muscles and clear to auscultation bilaterally AUSCULTATION: clear to auscultation bilaterally Cardio: COMMON NORMALS: no JVD, regular rate, regular rhythm, S1 normal heart sound present and S2 normal heart sound present RATE: regular rate RHYTHM: regular rhythm HEART SOUNDS: S1 normal heart sound present and S2 normal heart sound present GI: COMMON NORMALS: Normal to inspection, nondistended, normoactive bowel sounds present, Soft to palpation, non-tender, No hepatosplenomegaly present, no masses and no bruits PALPATION: Yes Soft to palpation and Yes No hepatosplenomegaly present Extremity: COMMON NORMALS: capillary refill normal, no clubbing, cyanosis or edema, no calf tenderness and no pedal edema Neuro: COMMON NORMALS: patient oriented x3 Psych: COMMON NORMALS: mental status grossly normal Data : 01/12/20 03:27 01/12/20 03:27 A&P Assessment and plan (1) Acute upper gastrointestinal bleeding: -Has a 1 year history of epigastric discomfort -Has a history of regular ibuprofen use -Has risk factors for H. pylori -Hemoccult positive, white blood cell count 20.8, hemoglobin 16, platelet count 702, BUN 31 -Had complaints of hematemesis -Reports alcohol consumption, denies a history of esophageal varices, or liver disease Plan: -N.p.o. -NG tube removed -General surgery has been consulted -Plan for EGD if worsening nausea vomiting -Protonix, Carafate -Monitor hemodynamics closely, monitor hemoglobin -H. pylori stool antigen -We will consider discharging on H. pylori treatment Full code SCDs for DVT prophylaxis Covid PCR pending- Status: Acute (2) Diverticulitis of sigmoid colon: -Seen on CT scan -However his pain seems to be more in the epigastrium -Continue ciprofloxacin and Flagyl -De-escalate antibiotic therapy based on clinical progress Status: Acute (3) Renal mass, right: -5.4 cm rounded hypodense heterogeneous mass lateral aspect of right kidney. Possible renal neoplasm and renal ultrasound or CT urogram could further evaluate as clinically indicated. Small 7 mm rounded hypodense structure lateral aspect left kidney which is too small to characterize but may be a small cyst. Small 1-2 mm nonobstructing stone lower pole of right kidney. -shelby us Complex approximately 5.7 x 5 x 5 cm right renal mass laterally. Mass is partially cystic with extensive irregular internal septations. Diagnostic possibilities include a cystic nephroma (multilocular renal cyst), multilocular cystic renal cell carcinoma/clear cell renal cell carcinoma, or less likely some type of nonneoplastic/acquired cystic disease, primary renal synovial sarcoma, or mixed epithelial and stromal tumor. -Has hemoglobin of 16 -Will have patient follow with Dr. Santana as outpatient, likely will be r eferred to urology [place] for nephrectomy Status: Acute (4) GERD (gastroesophageal reflux disease): Status: Acute (5) Acute kidney injury: -Creatinine 1.3, continue IV hydration Status: Acute (6) Angioedema of lips: -Secondary to lisinopril presumably, but could have hereditary angioedema related to NSAID use -Stop lisinopril -Was given Pepcid in ER, with improvement of angioedema -Has lip swelling, some mild facial swelling much improved -No complaints of difficulty swallowing, difficulty breathing, no tongue swelling plan;: -Monitor for anaphylaxis -Monitor hemodynamics -Solu-Medrol -Benadryl -Cetirizine -Singulair -Would also avoid all NSAIDs Status: Acute (7) HTN, goal below 140/80: -Hypertensive in the ER -Labetalol as needed -Start p.o. 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
[2020-01-13] VITALS: BP 123/72; PULSE 65; RESP 18; TEMP 37.1; O2SAT 96
[2020-01-13] MEDS: pantoprazole 40 mg SDV IVP (00:23)
[2020-01-13] MEDS: metroNIDAZOLE IV 500 MG/100 ML PREMIX 100 MG IV ×2 (01:32→08:32)
[2020-01-13] MEDS: dextrose 5%-sod chloride 0.9% 1,000 ML 75 ML IV (01:33)
[2020-01-13 04:00] VITALS: BP 134/79; PULSE 55; RESP 18; TEMP 36.4; O2SAT 98
[2020-01-13] MEDS: ciprofloxacin 400 MG/200 ML PREMIX 200 MG IV (04:32)
[2020-01-13 05:50] LABS: Basophils % 0.2 %; Hematocrit 42.6 % (42.0-52.0); Hemoglobin 13.9 g/dL (11.7-16.6); Lymphocytes # 1.5 10^3/uL (0.8-4.8); Lymphocytes % 10.3 %; Mean Corpuscular HGB Conc 32.6 g/dL (30.0-36.0); Mean Corpuscular Hemoglobin 28.8 pg (28.0-34.0); Mean Corpuscular Volume 88.4 fL (80-94); Mean Platelet Volume 9.1 fL (7.4-10.4); Monocytes # 0.9 10^3/uL (0.2-0.9); Neutrophils # 12.04 10^3/uL (1.8-7.7); Neutrophils % 82.8 %; Nucleated Red Blood Cells % 0 %; Platelet Count 536 10^3/cmm (130-400); Red Blood Count 4.82 10^6/uL (4.1-5.3); Red Cell Distribution Width 11.7 % (12.1-15.1); White Blood Count 14.6 10^3/uL (4.0-10.0)
--- NOTE | 2020-01-13 06:07 | PC.NURSE ---
Heart monitor will not stay in place on patient due to having very very hairy chest. Patient refused to be shaved.
[2020-01-13] MEDS: sucralfate 1 gm Tablet PO (06:14)
[2020-01-13 06:22] LABS: Alanine Aminotransferase 10 U/L (0-41); Albumin Level 3.6 g/dL (3.5-5.2); Alkaline Phosphatase 87 IU/L (40-130); Anion Gap 10.2 (5-19); Aspartate Amino Transferase 9 U/L (0-40); Blood Urea Nitrogen 19 mg/dL (6-20); Carbon Dioxide 28 mmol/L (22-29); Chloride 102 mmol/L (98-107); Globulin 2.6 g/dL (1.3-4.6); Glucose 148 mg/dL (65-115); Magnesium 2.5 mg/dL (1.7-2.3); Osmolality Calculated 287 mOsm/kg (285-295); Phosphorus 1.8 mg/dL (2.5-4.5); Potassium 4.2 mmol/L (3.5-5.1); Sodium 136 mmol/L (136-145); Total Bilirubin 0.3 mg/dL (0.15-1.2); Total Protein 6.2 g/dL (6.6-8.7)
[2020-01-13 06:53] LABS: Coronavirus Lab Test PTC Negative
--- NOTE | 2020-01-13 07:15 | P.PN_ITS ---
Subjective Subjective: Interval history: Overall patient feels better. Tolerating p.o. intake. Trending up leukocytosis to 14,000+, patient had good urine output and denies any abdominal pain, or nausea or vomiting. COVID-19 PCR tested negative. Vitals/I&O/Wt Last Vital Signs Temp 97.5 F L 01/13/20 04:00 Pulse 55 L 01/13/20 04:00 Resp 18 01/13/20 04:00 BP 134/79 01/13/20 04:00 Pulse Ox 98 01/13/20 04:00 01/12/20 01/13/20 01/13/20 22:59 06:59 14:59 Intake Total 1780 / 3300 100 / 3400 Output Total 500 / 950 800 / 1750 Balance 1280 / 2350 -700 / 1650 Weight last 48 hrs Weight 209 lb Weight 209 lb Physical Exam Narrative: EXAM NARRATIVE: Patient is conscious alert oriented X3 BMI 25.4 Head and neck examination PERRLA no masses no cervical lymphadenopathy no jaundice Abdomen nontender nondistended soft no organomegaly guarding or rigidity/no signs of peritonitis Data : 01/13/20 05:10 01/13/20 05:10 A&P Assessment and plan (1) Diverticulitis of sigmoid colon: Continue IV antimicrobial therapy in the form of ciprofloxacin and Flagyl versus Zosyn Repeated physical examination Advance to full liquid diet We will plan for colonoscopy 6 to 8 weeks out from such an episode From surgical standpoint of view if patient continues to clinically improve and tolerate p.o. can potentially be discharged on oral antibiotics for 10 days and follow-up with surgery office. Thank you for consulting general surgery to participate taking care Mr. Eller Status: Acute (2) Nausea and vomiting: Patient responding well to resuscitation and can advance diet to full liquids. I do not see an indication for EGD at this point. Follow-up at surgery office will plan for EGD and colonoscopy in 6 to 8 weeks Assurance and education All questions have been answered and all concerns have been addressed to patient's satisfaction. Status: Acute Attestations Medical Necessity Statement*: Patient requiring hospitalization for IV antimicrobial therapy and repeated physical examination. Time Spent in Patient Care: (>than 50% of time spent in counselling and/or direct pt care on unit) . Coding Level of Care Code Acute Cyber [employer] Incident Responder for [facility] Fwd Diagnoses Diverticulitis of sigmoid colon K57.32 Nausea and vomiting R11.2
[2020-01-13 07:21] VITALS: BP 134/81; PULSE 75; RESP 17; TEMP 36.6; O2SAT 95
[2020-01-13] MEDS: predniSONE 20 mg Tablet 40 MG PO (08:31)
[2020-01-13] MEDS: cetirizine 10 mg Tablet PO (08:32)
[2020-01-13] MEDS: amlodipine 10 mg Tablet PO (08:32)
--- NOTE | 2020-01-13 10:03 | PM.DCS ---
Discharge Providers Date of Admission: 01/11/20 15:40 Date of Discharge: January 13, 2020 Attending Provider at Admission: Gabe Melendez MD Attending Provider at Discharge: Bobby Weeks MD Diagnoses at Discharge Discharge Diagnosis (1) Diverticulitis of sigmoid colon: Status: Acute Problem details: Will discharge on Cipro and Flagyl. No significant pain currently. White blood cell count has decreased. 7 more days of antibiotics. (2) Nausea and vomiting: Status: Acute Problem details: Resolved Reason for Visit Reason for Visit: NAUSEA Hospital Course Hospital Course: Alfredo is a 59-year-old white male who presented to the hospital with abdominal discomfort. He also had vomiting. He had history of chronic use of ibuprofen. There was concern about angioedema of his lips on admission, and lisinopril was stopped. CT scan demonstrated diverticulitis. This also demonstrated a renal mass, and ultrasound was done on follow-up of this, and cannot rule out right renal cell carcinoma. He was placed on IV antibiotics, rehydrated, placed on Protonix, and a surgery consultation was obtained. He did not need any interventions. He clinically improved significantly. By the end of his hospital stay he had minimal if any discomfort. He was afebrile. Cultures were negative. He was discharged home on Flagyl and Cipro for 10 days. Physical Exam Narrative: EXAM NARRATIVE: General exam no apparent distress Cardiovascular regular rate and rhythm without murmur Lungs clear Abdomen is soft, possible slight tenderness left lower quadrant Extremities no cyanosis clubbing or edema Discharge Data Data Completed and Pending: Completed Studies During Hospitalization Category Date Time Status CT abdomen pelvis wo con [id number] Urge nt Cat Scan 01/11/20 13:39 Completed XR chest 1V lisette ble [id number] Stat Exams 01/11/20 15:51 Completed XR chest 1V lisette ble [id number] Urgent Exams 01/11/20 11:56 Completed US renal BI* [id number] Urgent Ultrasound 01/11/20 15:03 Completed Pending at discharge Category Date Time Status Clostridioides Di fficile PCR Routin e Lab 01/11/20 17:19 Ordered Complete Blood Co unt w/Auto AM LABS Lab 01/14/20 04:00 Ordered Complete Blood Co unt w/Auto AM LABS Lab 01/15/20 04:00 Ordered Comprehensive Met abolic Panel AM LA BS Lab 01/14/20 04:00 Ordered Comprehensive Met abolic Panel AM LA BS Lab 01/15/20 04:00 Ordered Enteric Bacterial Panel by PCR Rout ine Lab 01/11/20 17:19 Ordered Enteric Parasite Panel by PCR Routi ne Lab 01/11/20 17:19 Ordered Helicobacter Pylo ri AG Stool Stat Lab 01/11/20 17:19 Uncollected Immunochemical Fe franny OCB Routine Lab 01/11/20 17:19 Ordered Lactoferrin Routi ne Lab 01/11/20 17:19 Ordered Magnesium AM LABS Lab 01/14/20 04:00 Ordered Magnesium AM LABS Lab 01/15/20 04:00 Ordered Phosphorus AM LAB S Lab 01/14/20 04:00 Ordered Phosphorus AM LAB S Lab 01/15/20 04:00 Ordered Labs from last 24 hours 01/13/20 01/13/20 01/11/20 05:10 05:10 16:10 WBC 14.6 H RBC 4.82 Hgb 13.9 Hct 42.6 MCV 88.4 MCH 28.8 MCHC 32.6 RDW 11.7 L Plt Count 536 H MPV 9.1 Neut % (Auto) 82.8 Lymph % (Auto) 10.3 Andrew % (Auto) 6.0 Eos % (Auto) 0.0 Baso % (Auto) 0.2 Neut # (Auto) 12.04 H Lymph # (Auto) 1.5 Andrew # (Auto) 0.9 Eos # (Auto) 0.0 Baso # (Auto) 0.0 Nucleated RBC % (a uto) 0 Nucleated RBCs # 0.0 Sodium 136 Potassium 4.2 Chloride 102 Carbon Dioxide 28 Anion Gap 10.2 BUN 19 Creatinine 0.9 GFR Calculation 87.0 L Glucose 148 H Calculated Osmolal ity 287 Calcium 9.0 Phosphorus 1.8 L Magnesium 2.5 H Total Bilirubin 0.3 AST 9 ALT 10 Alkaline Phosphata se 87 Total Protein 6.2 L Albumin 3.6 Globulin 2.6 Nasal/Oral COVID-1 9 PCR Negative Vitals: Last Vital Signs Temp 97.8 F 01/13/20 07:21 Pulse 75 01/13/20 07:21 Resp 17 01/13/20 07:21 BP 134/81 01/13/20 07:21 Pulse Ox 95 01/13/20 07:21 Discharge Plan Discharge Patient Disposition: Home Condition: Stable Prescriptions: New metronidazole [Flagyl] 500 mg tablet 500 mg PO QID Qty: 40 RF: 0 pantoprazole [Protonix] [address] for susp in packet 40 mg PO BID Qty: 60 RF: 0 amlodipine 10 mg Tablet 10 mg PO DAILY Qty: 30 RF: 0 ciprofloxacin HCl [Cipro] 500 mg tablet 500 mg PO BID Qty: 28 RF: 0 Continued calcium carbonate [Tums] 200 mg calcium (500 mg) tablet,chewable 200 mg PO PRN RF: 0 Discontinued lisinopril 20 mg tablet 20 mg PO DAILY RF: 0 aspirin 81 mg Tablet,Delayed Release (Dr/Ec) 81 mg PO PRN RF: 0 ibuprofen 200 mg Tablet 800 mg PO PRN RF: 0 Discharge Orders: Discharge Order (Routine); Ordered 01/13/20 Ordered By: Bobby Weeks Referrals: Byron Mancia MD [Physician] - 2 weeks (Follow-up diverticulitis, to schedule colonoscopy and possible EGD) Usman Santana MD [Physician] - 2 weeks Discharge Diet: Cardiac Discharge Activity: Increase activity as tolerated Activity Restrictions/Additional Instructions: Soft diet. 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
[2020-01-13 11:22] VITALS: BP 134/81; PULSE 75; RESP 17; TEMP 36.6; O2SAT 95
== END 2020-01-13 11:22 | disposition home or self-care (01) ==
LOC: ER 11:51 → MEDSURG 16:15
PROVIDERS: Family Medicine; Surgery; Admitting Provider Family Medicine; Visit Provider Internal Medicine
DX: K57.32 Diverticulitis of large intestine without perforation or abscess without bleeding (principal); R11.2 Nausea with vomiting, unspecified; N28.89 Other specified disorders of kidney and ureter; K21.9 Gastro-esophageal reflux disease without esophagitis; N17.9 Acute kidney failure, unspecified; T78.3XXA Angioneurotic edema, initial encounter; I10 Essential (primary) hypertension; Z79.82 Long term (current) use of aspirin
CPT/HCPCS: 12345; 36415; 71045; 74176; 76770; 80048; 80053; 81001; 82271; 82550; 83036; 83605; 83690; 83735; 84100; 84484; 85025; 86140; 87635; 93005; 96361; 96365; 96366; 96367; 96375; 99284; 99285; C9113; G0378; J0744; J2270; J2405; J2930; J3490; J7030; J7512; S0030

== ENCOUNTER → 2020-03-27 10:25 | Outpatient (BNVA) | payer SELFPAY | PROVIDERS: Visit Provider Surgery | DX: K57.90 Diverticulosis of intestine, part unspecified, without perforation or abscess without bleeding (principal) | CPT/HCPCS: 87635 ==

== ENCOUNTER 2020-04-01 07:13 | Day surgery (SDC) | payer SELFPAY ==
[2020-03-30 15:33] VITALS: BMI 24.9
[2020-04-01 07:33] VITALS: BP 139/117; PULSE 79; RESP 18; TEMP 36.1; O2SAT 98
[2020-04-01] MEDS: sodium chloride 0.9% 1,000 ML 30 ML IV (07:55)
--- NOTE | 2020-04-01 07:55 | W.PM.OPSFHP ---
Same Day Surgery H&P Indication for Procedure/HPI DATE OF PROCEDURE: April 01, 2020 CHIEF COMPLAINT/INDICATIONFOR SURGICAL PROCEDURE: History of diverticulitis PREOP DIAGNOSIS: History of sigmoid diverticulitis PLANNED PROCEDRUE: Operation Date: 04/01/20 08:15 Proposed Procedures p Colonoscopy 86051 K57.90(Not Applicable) - Byron Mancia MD Patient presents today to the office as a follow-up status post recent hospitalization for acute sigmoid diverticulitis with a CT scan findings 1.) Acute distal sigmoid diverticulitis versus localized distal colitis. 2.)5.4 cm rounded hypodense heterogeneous mass lateral aspect of right kidney. Possible renal neoplasm and renal ultrasound or CT urogram could further evaluate as clinically indicated. Small 7 mm rounded hypodense structure lateral aspect left kidney which is too small to characterize but may be a small cyst. Small 1-2 mm nonobstructing stone lower pole of right kidney. 3.) Abundant fluid in stomach and duodenum, nonspecific. Patient comes today escorted by his and reports no fevers chills nausea or vomiting. Or GERD symptoms. He reports that last colonoscopy was done 4 years ago and was reported as normal. 04/01/2020 Patient comes today for scheduled colonoscopy ROS All systems have been reviewed negative except as per the above or per problem list Medications/Allergies* Home Medications Medication Instructions Recorded Confirmed Type calcium carbonate 200 mg calcium 200 mg PO PRN 01/11/20 01/27/20 History (500 mg) chewable tablet Allergies/Adverse Reactions Allergy/AdvReac Type Severity Reaction Status Date / Time lisinopril Allergy Severe angioedema Verified 04/01/20 07:55 Pertinent History/Comorbid Conditions* Medical History (Updated 01/27/20 @ 11:03 by Byron Mancia MD) Acute upper gastrointestinal bleeding Angioedema of lips GERD (gastroesophageal reflux disease) HTN, goal below 140/80 Surgical History (Updated 01/11/20 @ 16:22 by Gabe Melendez MD) History of hernia surgery Family History (Updated 01/11/20 @ 16:28 by Gabe Melendez MD) Atrial fibrillation Mother Cancer Father Social History Smoking and tobacco status: never smoked Alcohol intake: current Alcohol intake frequency: 3 or more drinks per day Alcohol type: beer History of recent travel: No Pertinent Exam Findings alert, oriented x 3, clear to auscultation bilaterally, regular rate & rhythm and procedure specific exam findings (Abdominal examination nontender nondistended soft) Recommendations Surgery/Procedure today (Colonoscopy with possible biopsy and possible polypectomy) Coding Level of Care Code Acute Member Of [employer] for [employer]
--- NOTE | 2020-04-01 07:58 | ANES.PREANE2 ---
Pre-Anesthetic Assessment Pre-Anesthetic Assessment: Height/Weight: Height 1.93 m Weight 92.986 kg Temp Pulse Resp BP Pulse Ox 97.0 F L 79 18 139/117 98 04/01/20 07:33 04/01/20 07:33 04/01/20 07:33 04/01/20 07:33 04/01/20 07:33 Preop Diagnosis: History of sigmoid diverticulitis Proposed Procedure: Operation Date: 04/01/20 08:15 Proposed Procedures p Colonoscopy 13774 K57.90(Not Applicable) - Byron Mancia MD Was Beta Yash taken within 24 hours: N/A Last intake: Intake Last Liquid Date 03/31/20 Last Liquid Time 23:30 Last Solid Date 03/30/20 Last Solid Time 20:00 Social: Social History: Alcohol and Tobacco Airway: Submandibular: WNL Cervical ROM: WNL MP: 2 Dentition: False Pulmonary: Pulmonary: COPD CV/HEM: CV/HEM: HTN GI: GI: GERD Anesthetic Plan: ASA status: 3 Anesthesia: MAC Risk of > 500 ml blood loss (7ml/kg in children): No Meds/Allergies Current Medications: Current Medications Generic Name Dose Route Start Last Admin Trade Name Freq PRN Reason Stop Dose Admin Sodium Chloride 1,000 mls @ 30 ml s/hr 04/01/20 07:30 04/01/20 07:55 Sodium Chloride 0.9% IV 04/02/20 07:29 30 mls/hr .Q24H GOOD Administration PFSH Anesthesia PFSH: Medical History Acute upper gastrointestinal bleeding Angioedema of lips GERD (gastroesophageal reflux disease) HTN, goal below 140/80 Surgical History History of hernia surgery Family History Mother Atrial fibrillation Father Cancer Social History Smoking and tobacco status: never smoked Alcohol intake: current Alcohol intake frequency: 3 or more drinks per day Alcohol type: beer History of recent travel: No Data Anesthesia Cardiac Studies: No Data to Display
[2020-04-01 08:52] VITALS: BP 171/106; PULSE 60; RESP 18; TEMP 36.3; O2SAT 100
--- NOTE | 2020-04-01 08:57 | ANE.PACU2 ---
Inpatient post-anesthesia follow up: Airway intact: Yes Vital signs: Temperature 97.0 F Pulse Rate 79 Respiratory Rate 18 Blood Pressure 139/117 Pulse Oximetry 98 Oxygen Delivery Me thod Room Air Oxygen Flow Rate Fraction of Inspir ed Oxygen Hydration adequate: Yes Nausea and vomiting: No Pain level: 1 Mental status: Baseline
[2020-04-01 09:16] VITALS: BP 175/112; PULSE 65; RESP 18; O2SAT 100
== END 2020-04-01 09:31 | disposition home or self-care (01) ==
PROVIDERS: Visit Provider Surgery
PROC: 0DJD8ZZ Inspection of Lower Intestinal Tract, Via Natural or Artificial Opening Endoscopic (ICD-10-PCS; CPT 45378; principal; 2020-04-01 08:15)
DX: K57.30 Diverticulosis of large intestine without perforation or abscess without bleeding (principal); D12.8 Benign neoplasm of rectum; D12.5 Benign neoplasm of sigmoid colon; K21.9 Gastro-esophageal reflux disease without esophagitis; I10 Essential (primary) hypertension; J44.9 Chronic obstructive pulmonary disease, unspecified
CPT/HCPCS: 12345; 45385; 88305; J2704; J7030

== ENCOUNTER 2020-04-17 07:17 | Outpatient (CLI) | payer SELFPAY ==
[2020-04-17] MEDS: iohexol 300 mg/mL 100 mL Btl IV (07:59)
--- NOTE | 2020-04-17 08:00 | CT_ITS ---
WS: [id number] CT ABDOMEN PELVIS TECHNIQUE: Noncontrast CT of the abdomen and contrast-enhanced CT of the abdomen and pelvis with sandra nal and sagittal reformatted images. CLINICAL INFORMATION: RENAL MASS COMPARISON: CT January 11, 2020 DLP: 2172.[address] scans at [facility] use at least one of these dose optimization techniques: automat ed exposure control; mA and/or kV adjustment per patient size (includes targeted exams where dose is matched to clinical indication); or iterative reconstruction. FINDINGS: Heterogeneously enhancing right lateral renal mass measuring 4.8 x 5.1 x 5.3 cm. This is stable in si ze compared to previous. 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 Multiple enhancing inte rnal septations with peripheral enhancement. No hydronephrosis. Adrenal glands are normal. Small low- attenuation left renal lesions most likely represent renal cysts. Some are too small to characterize. Normal liver. Normal portal vein and splenic vein. Gallbladder is contracted. Small hepatic cyst agustin r the gallbladder fossa. Lung bases are well aerated. Sigmoid diverticulosis. No evidence of acute diverticulitis. Small fat-containing umbilical hernia. N ormal pancreatic parenchymal enhancement. Normal spleen. Normal GE junction. Normal caliber abdominal aorta. No abdominal or pelvic lymphadenopathy. No inguinal lymphadenopathy. Incidental fat-containin g right inguinal hernia. Grade 1 anterolisthesis L5 on S1 with chronic spondylolysis. CT/CT abdomen pelvis wo/w [id number] IMPRESSION: 1. Heterogeneously enhancing right renal lesion measuring 4.8 x 5.1 x 5.3 cm w ith multiple enhancing internal septations. 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 Recommend urology consultation. No hydronephrosis in ri ght kidney. 2. Multiple low-attenuation lesions left kidney too small to characterize most likely represent renal cysts. 3. No abdominal or pelvic lymphadenopathy. 4. Sigmoid diverticulosis.
== END 2020-04-17 07:18 | disposition home or self-care (01) ==
LOC: RAD 07:18
PROVIDERS: Visit Provider Nurse Practitioner Family
DX: N28.89 Other specified disorders of kidney and ureter (principal); K57.30 Diverticulosis of large intestine without perforation or abscess without bleeding
CPT/HCPCS: 74178